=== PATIENT | male | born 1995 | race Caucasian/White ===

== ENCOUNTER 2016-12-03 04:43 | Emergency (ER) | payer MEDICAID ==
[2016-12-03] MEDS ORDERED: Amoxicillin/Clavulanate K 875-125 MG Tab PO ONE (04:44)
[2016-12-03] MEDS ORDERED: Benzonatate 100 MG Cap PO ONE (04:44)
[2016-12-03] MEDS ORDERED: Albuterol 6.7 GM Inhaler INH ONE ×2 (04:44→05:55)
[2016-12-03 04:48] VITALS: BP 117/62
[2016-12-03] MEDS ORDERED: Albuterol/Ipratropium 3.0-0.5 MG/3 ML Neb Soln NEB ONE (05:11)
--- NOTE | 2016-12-03 05:49 | EDM.PDOC ---
ED HPI GENERAL MEDICAL PROBLEM - General Chief Complaint: Respiratory Problem Stated Complaint: TEMP OF 103 AND COUGH [id number] Time Seen by Provider: 12/03/16 04:50 Source of Information: Reports: Patient History Limitations: Reports: No Limitations - History of Present Illness INITIAL COMMENTS - FREE TEXT/NARRATIVE: c/o cough, sore throat and fever up to 103. Sx started 3 days ago. Recent bronchitis in past month, smoker. No hx of asthma. Has been using OTC cough drops and Chest Pain Score (Numeric/FACES): 5 - Related Data Allergies Allergy/AdvReac Type Severity Reaction Status Date / Time cats Allergy Facial Uncoded 12/03/16 04:48 Swelling Home Meds: Home Meds . [No Known Home Meds] 12/08/14 [History] Past Medical History - Past Health History Medical/Surgical History: Denies Medical/Surgical History Other HEENT History: ear infections Social & Family History - Tobacco Use Smoking Status *Q: Current Every Day Smoker Years of Tobacco use: 2 Packs/Tins Daily: 1 Used Tobacco, but Quit: No Month Tobacco Last Used: november Second Hand Smoke Exposure: Yes - Alcohol Use Days Per Week of Alcohol Use: 0 - Recreational Drug Use Recreational Drug Use: No Drug Use in Last 12 Months: Yes Recreational Drug Type: Reports: Marijuana/Hashish Recreational Drug Use Frequency: Rarely - Living Situation & Occupation Living situation: Reports: Single ED ROS GENERAL - Review of Systems Review Of Systems: ROS reveals no pertinent complaints other than HPI. ED EXAM, GENERAL - Physical Exam Exam: See Below Exam Limited By: Language Barrier General Appearance: Alert, Mild Distress Eye Exam: Bilateral Eye: EOMI Ears: Normal External Exam. No: Normal TMs (dull bilateral) Nose: Normal Inspection Throat/Mouth: Inflammation Head: Atraumatic, Normocephalic Neck: Normal Inspection, Lymphadenopathy (L), Lymphadenopathy (R) Respiratory/Chest: Rhonchi, Wheezing (right base) Cardiovascular: Normal Peripheral Pulses, Regular Rate, Rhythm, Tachycardia GI/Abdominal: Soft Extremities: Normal Inspection Neurological: Alert, Oriented, Normal Cognition Psychiatric: Normal Affect, Normal Mood Skin Exam: Warm, Dry, Intact, Normal Color Course - Vital Signs Last Recorded V/S: Last Vital Signs Temp 99.2 F 12/03/16 04:45 Pulse 106 H 12/03/16 04:45 Resp 18 12/03/16 04:45 BP 117/62 12/03/16 04:45 Pulse Ox 97 12/03/16 04:45 - Orders/Labs/Meds Orders: Active Orders 24 hr Category Date Time Status RT Aerosol Therapy [RC] ASDIRECTED Care 12/03/16 05:12 Active CULTURE STREP A CONFIRMATION [] Stat Lab 12/03/16 05:10 Results STREP SCRN A RAPID W CULT CONF [] Stat Lab 12/03/16 05:10 Results Meds: Medications Discontinued Medications Generic Name Dose Route Start Last Admin Trade Name Carey PRN Reason Stop Dose Admin Albuterol/Ipratropium 3 ml 12/03/16 05:11 12/03/16 05:16 Duoneb 3.0-0.5 Mg/3 Ml NEB 12/03/16 05:12 3 ml ONETIME ONE Administration Departure - Departure Time of Disposition: 05:52 Disposition: Home, Self-Care 01 Condition: Good Clinical Impression: Bronchitis Pharyngitis Qualifiers: Pharyngitis/tonsillitis etiology: unspecified etiology Qualified Code(s): J02.9 - Acute pharyngitis, unspecified - Discharge Information Instructions: Acute Bronchitis, [id number] Forms: ED Department Discharge Additional Instructions: albuterol inhaler 2 puffs every 4 hours as needed for cough #1 augmentin 875/125 one twice daily for one week Tesselon pearles 200mg one every 8 hours as needed for cough #10 increase fluid intake tylenol or ibuprofen for fever / throat pain clinic next week if symptoms worsen, cough may continue for additional 2 weeks consider smoking cessation - My Orders Last 24 Hours: My Active Orders 12/03/16 05:10 CULTURE STREP A CONFIRMATION [RM] Stat STREP SCRN A RAPID W CULT CONF [] Stat 12/03/16 05:12 RT Aerosol Therapy [RC] ASDIRECTED - Assessment/Plan Last 24 Hours: My Active Orders 12/03/16 05:10 CULTURE STREP A CONFIRMATION [RM] Stat STREP SCRN A RAPID W CULT CONF [] Stat 12/03/16 05:12 RT Aerosol Therapy [RC] ASDIRECTED
[2016-12-03] MEDS ORDERED: Benzonatate 100 MG Cap ONE (05:55)
[2016-12-03] MEDS ORDERED: Amoxicillin/Clavulanate K 875-125 MG Tab ONE (05:55)
== END 2016-12-03 06:02 | disposition home or self-care (01) ==
LOC: DL.ED 04:43
DX: J40 Bronchitis, not specified as acute or chronic (principal); J02.9 Acute pharyngitis, unspecified; F17.210 Nicotine dependence, cigarettes, uncomplicated; Z91.048 Other nonmedicinal substance allergy status
CPT/HCPCS: 71020; 87081; 87430; 94640; 99284; A9270

== ENCOUNTER 2022-03-15 21:48 | Emergency (ER) | payer BC, MEDICAID ==
[2022-03-15] MEDS ORDERED: Ketorolac 30 MG/ML SDV IM ONE (22:12)
[2022-03-15 22:25] VITALS: BP 120/84; PULSE 91
== END 2022-03-15 22:29 | disposition home or self-care (01) ==
LOC: DL.ED 21:48
DX: S46.911A Strain of unspecified muscle, fascia and tendon at shoulder and upper arm level, right arm, initial encounter (principal); Z91.09 Other allergy status, other than to drugs and biological substances
CPT/HCPCS: 96372; 99283; J1885